=== PATIENT | female | born 1945 | race American Indian/Alaskan Native ===

== ENCOUNTER 2017-11-27 15:19 | Emergency (ER) | payer MEDICARE ==
[2017-11-27 15:19] VITALS: BMI 25.5
[2017-11-27 15:44] VITALS: RESP 18; TEMP 97.9; O2SAT 100
[2017-11-27] MEDS ORDERED: Sodium Chloride 0.9% 1,000 ML IV ONE (16:01)
--- NOTE | 2017-11-27 16:05 | ED PDOC ---
Arrival/HPI - General Chief Complaint: Dizziness/Lightheaded Time Seen by Provider: 11/27/17 15:59 Historian: Patient - History of Present Illness Narrative History of Present Illness (Text): 11/27/17 16:02 72yo female with PMhx of hypertension and Diabetes bib the BLS for syncopal episode. The daughter by the bedside states patient had a brief syncopal episode that lasted for seconds while in a store this afternoon. Patient states she started having generalized bodyache, global weakness, and one episode of diarrhea this afternoon. The daughter states she herself had similar symptoms and was diagnosed with Flu here two days ago. She thinks patient might also have Flu. She denies chest pain, abdominal pain, nausea, vomiting, headache, fever, chills, urinary symptoms, any other complaint. Past Medical History - Provider Review Nursing Documentation Reviewed: Yes - Infectious Disease Hx of Infectious Diseases: None - Tetanus Immunization Tetanus Immunization: Unknown - Reproductive Menopause: Yes - Cardiac Hx Hypertension: Yes - HEENT Hx HEENT Disorder: No - Endocrine/Metabolic Hx Diabetes Mellitus Type 2: Yes - Musculoskeletal/Rheumatological Hx Falls: No - Gastrointestinal Hx Gastrointestinal Disorders: (Hiatal Hernia) Hx Diverticulitis: Yes - Psychiatric Hx Substance Use: No - Surgical History Hx Hysterectomy: Yes Hx Joint Replacement: Yes (right knee) Hx Orthopedic Surgery: Yes (left shoulder,) - Anesthesia Hx Anesthesia: No Hx Anesthesia Reactions: No Hx Malignant Hyperthermia: No - Suicidal Assessment Feels Threatened In Home Enviroment: No Family/Social History - Physician Review Nursing Documentation Reviewed: Yes Family/Social History: Unknown Family HX Smoking Status: Never Smoked Hx Alcohol Use: No Hx Substance Use: No Hx Substance Use Treatment: No Allergies/Home Meds Allergies/Adverse Reactions: Allergies codeine Allergy (Severe, Verified 09/20/16 00:42) ANAPHYLAXIS indomethacin Allergy (Verified 09/20/16 00:43) HEADACHE scopolamine Adverse Reaction (Verified 09/20/16 00:43) DIZZINESS contact cold ca Allergy (Uncoded 09/20/16 00:43) HEADACHE Home Medications: Home Meds Medication Instructions Recorded Confirmed Aspirin [Aspir 81] 81 mg PO DAILY 06/04/12 08/20/17 Celecoxib [Celebrex] 100 mg PO DAILY 06/04/12 08/20/17 Omeprazole [Prilosec] 20 mg PO DAILY 06/04/12 08/20/17 Olmesartan Medoxomil [Benicar] 5 mg PO DAILY 05/02/15 08/20/17 Exenatide Microspheres [Bydureon 2 mg SC DAILY 09/20/16 08/20/17 Pen] Review of Systems - Physician Review All systems were reviewed & negative as marked: Yes - Review of Systems Constitutional: Fatigue Eyes: Normal ENT: Normal Respiratory: Normal Cardiovascular: Normal Gastrointestinal: Normal Genitourinary Female: Normal Musculoskeletal: Normal Skin: Normal Neurological: Dizziness (Syncope). absent: Headache, Focal Weakness Endocrine: Normal Hemo/Lymphatic: Normal Psychiatric: Normal Physical Exam Vital Signs Reviewed: Yes Vital Signs Temp Pulse Resp BP Pulse Ox 11/27/17 19:20 84 18 126/74 100 11/27/17 15:19 97.9 F 81 18 118/71 100 Temperature: Afebrile Blood Pressure: Normal Pulse: Regular Respiratory Rate: Normal Appearance: Positive for: Well-Appearing, Non-Toxic, Comfortable Pain Distress: None Mental Status: Positive for: Alert and Oriented X 3 Finger Stick Blood Glucose: 161 - Systems Exam Head: Present: Atraumatic, Normocephalic Pupils: Present: PERRL Extroacular Muscles: Present: EOMI Conjunctiva: Present: Normal Mouth: Present: Moist Mucous Membranes Neck: Present: Normal Range of Motion Respiratory/Chest: Present: Clear to Auscultation, Good Air Exchange. No: Respiratory Distress, Accessory Muscle Use Cardiovascular: Present: Regular Rate and Rhythm, Normal S1, S2. No: Murmurs Abdomen: Present: Normal Bowel Sounds. No: Tenderness, Distention, Peritoneal Signs Back: Present: Normal Inspection Upper Extremity: Present: Normal Inspection. No: Cyanosis, Edema Lower Extremity: Present: Normal Inspection. No: Edema Neurological: Present: GCS=15, CN II-XII Intact, Speech Normal, Motor Func Grossly Intact, Normal Sensory Function, Normal Cerebellar Funct, Norm Deep Tendon Reflexes, Memory Normal, Other (No focal neurological deficit) Skin: Present: Warm, Dry, Normal Color. No: Rashes Psychiatric: Present: Alert, Oriented x 3, Normal Insight, Normal Concentration Medical Decision Making ED Course and Treatment: 11/27/17 19:34 PT in ED for stated history. She was neurologically stable in ED. BUN was elevated likely secondary to dehydration, pt was hydrated. H/H of 9.5 was noted and on further questioning, pt states she sees a Senior Programmer for Anemia and on iron currently. she denies Melena. Head Ct was negative for acute derangement. EKG NSR @ 77bpm she was offered admission for further evaluation to r/o neurogenic/cardiogenic causes states she already saw a Ship Worker and will f/u with the field operations supervisor. the risk of another syncopal episode, head injury and even was DW the patient with the daughter by the bedside. She expressed understanding of these risks and still insist on signing out AMA. she was advised to return to ED if she changes her mind at anytime. Advised to f /u with her PMD and specialist. - Lab Interpretations Lab Results: 11/27/17 16:40 11/27/17 16:40 Lab Results 11/27/17 19:00: Urine Color Yellow, Urine Appearance Clear, Urine pH 6.5, Ur Specific [place] 1.010, Urine Protein Negative, Urine Glucose (UA) Negative, Urine Ketones Negative, Urine Blood Trace-intact H, Urine Nitrate Negative, Urine Bilirubin Negative, Urine Urobilinogen 0.2, Ur Leukocyte Esterase Negative , Urine RBC 0 - 2, Urine WBC 0 - 2, Ur Epithelial Cells 0 - 2, Urine Bacteria Few 11/27/17 16:40: PT 11.6, INR 1.02, APTT 23.9 L 11/27/17 16:40: Influenza Typ A,B (EIA) Negative for flu a/b 11/27/17 16:40: Sodium 140, Potassium 4.8, Chloride 105, Carbon Dioxide 24, Anion Gap 15, BUN 29 H, Creatinine 1.0, Est GFR ( Amer) > 60, Est GFR ( Non-Af Amer) 55, Random Glucose 160 H, Calcium 10.3, Magnesium 1.7, Total Bilirubin 0.4, AST 32, ALT 31, Alkaline Phosphatase 28 L, Lactate Dehydrogenase 534, Total Creatine Kinase 55, Troponin I < 0.01, Total Protein 6.7, Albumin 3.8 , Globulin 2.9, Albumin/Globulin Ratio 1.3 11/27/17 16:40: WBC 5.9, RBC 4.07, Hgb 9.5 L, Hct 30.2 L, MCV 74.2 L, MCH 23.3 L , MCHC 31.5, RDW 17.4 H, Plt Count 376, MPV 9.6, Gran % 71.5 H, Lymph % (Auto) 23.6, [place] % (Auto) 4.1, Eos % (Auto) 0.5 L, Baso % (Auto) 0.3, Gran # 4.21, Lymph # (Auto) 1.4, [place] # (Auto) 0.2, Eos # (Auto) 0.0, Baso # (Auto) 0.02 - RAD Interpretation Radiology Orders: 11/27/17 16:00 HEAD W/O CONTRAST [CT] Stat CHEST PORTABLE [RAD] Stat - Medication Orders Current Medication Orders: Sodium Chloride (Sodium Chloride 0.9%) 1,000 mls @ 250 mls/hr IV .Q4H ONE Stop: 11/27/17 20:00 Last Admin: 11/27/17 17:03 Dose: 250 mls/hr eMAR Start Stop Document 11/27/17 17:03 EQ (Rec: 11/27/17 17:03 EQ [id number]) Intravenous Solution Start Date 11/27/17 Start Time 17:03 Disposition/Present on Arrival - Present on Arrival Any Indicators Present on Arrival: No History of DVT/PE: No History of Uncontrolled Diabetes: No Urinary Catheter: No History of Decub. Ulcer: No History Surgical Site Infection Following: None - Disposition Have Diagnosis and Disposition been Completed?: Yes Diagnosis: Syncope Disposition: AGAINST MEDICAL ADVICE Disposition Time: 19:30 Patient Problems: Current Active Problems Problem Status Onset Syncope Acute Condition: FAIR Discharge Instructions (ExitCare): Syncope (ED) Referrals: Zoran Christine, [Primary Care Provider] - Follow up with primary Forms: Piehole (N[place]ien)
[2017-11-27 16:56] LABS: BASO # 0.02 K/mm3 (0.0-2.0); BASO % 0.3 % (0.0-3.0); EOS % 0.5 % (1.5-5.0); GRAN # 4.21 (1.4-6.5); GRAN % 71.5 % (50.0-68.0); HEMOGLOBIN 9.5 g/dL (12.0-16.0); LYMPH # 1.4 (1.2-3.4); LYMPH % 23.6 % (22.0-35.0); MEAN CELL VOLUME 74.2 fl (80.0-105.0); MEAN CORPUSCULAR HEMOGLOBIN 23.3 pg (25.0-35.0); MEAN CORPUSCULAR HGB CONC 31.5 g/dl (31.0-37.0); MEAN PLATELET VOLUME 9.6 fl (7.0-11.0); MONO # 0.2 (0.1-0.6); MONO % 4.1 % (1.0-6.0); RBC 4.07 10^6/uL (3.5-6.1); RED CELL DISTRIBUTION WIDTH 17.4 % (11.5-14.5); WHITE BLOOD COUNT 5.9 10^3/ul (4.5-11.0)
[2017-11-27 17:09] LABS: INR 1.02 (0.93-1.08); PROTHROMBIN TIME 11.6 SECONDS (9.4-12.5)
[2017-11-27 17:10] LABS: PARTIAL THROMBOPLASTIN TIME 23.9 Seconds (25.1-36.5)
[2017-11-27 17:18] LABS: TROPONIN I < 0.01 ng/mL
[2017-11-27 17:19] LABS: ALB/GLOB RATIO 1.3 (1.1-1.8); ALBUMIN 3.8 g/dL (3.0-4.8); ALT/SGPT 31 U/L (7-56); AST/SGOT 32 U/L (14-36); BLOOD UREA NITROGEN 29 mg/dL (7-21); CALCIUM 10.3 mg/dL (8.4-10.5); GFR AFRICAN-AMERICAN > 60; GFR NON-AFRICAN AMERICAN 55; MAGNESIUM 1.7 mg/dL (1.7-2.2)
--- NOTE | 2017-11-27 18:58 | CT ---
PROCEDURE: CT HEAD WITHOUT CONTRAST. HISTORY: Syncope COMPARISON: None available. TECHNIQUE: Axial computed tomography images were obtained through the head/brain without intravenous contrast. Coronal and sagittal reconstructed images. Radiation dose: Total exam DLP = mGy-cm. This CT exam was performed using one or more of the following dose reduction techniques: Automated exposure control, adjustment of the mA and/or kV according to patient size, and/or use of iterative reconstruction technique. FINDINGS: HEMORRHAGE: 751.67 BRAIN: No mass effect or edema. No atrophy or chronic microvascular ischemic changes. VENTRICLES: Unremarkable. No hydrocephalus. CALVARIUM: Unremarkable. PARANASAL SINUSES: Unremarkable as visualized. No significant inflammatory changes. MASTOID AIR CELLS: Unremarkable as visualized. No inflammatory changes. OTHER FINDINGS: None. IMPRESSION: No acute intracranial abnormalities. No significant findings to account for the clinical presentation. No significant interval change compared to the prior examination(s).
[2017-11-27 19:14] LABS: PH,URINE 6.5 (4.7-8.0); URINE BILIRUBIN NEGATIVE (NEGATIVE); URINE BLOOD TRACE-INTACT (NEGATIVE); URINE GLUCOSE (UA) NEGATIVE (NEGATIVE); URINE LEUKOCYTE ESTERASE NEGATIVE Leu/uL (NEGATIVE); URINE NITRATE NEGATIVE (NEGATIVE); URINE PROTEIN NEGATIVE mg/dL (<30 mg/dL); URINE UROBILINOGEN 0.2 E.U./dL (<1 E.U./dL)
[2017-11-27 19:20] LABS: URINE APPEARANCE CLEAR (CLEAR); URINE COLOR YELLOW (YELLOW)
[2017-11-27 19:21] VITALS: BP 126/74; PULSE 84
[2017-11-27 19:25] LABS: URINE BACTERIA FEW (NEG); URINE EPITHELIAL CELLS 0 - 2 /hpf (0-5); URINE RBC 0 - 2 /hpf (0-2); URINE WBC 0 - 2 /hpf (0-6)
--- NOTE | 2017-11-27 23:47 | CARD ---
APPROVED REPORT EKG Measurement Heart [id number] <Conclusion> Normal sinus rhythm Normal ECG
--- NOTE | 2017-11-28 09:03 | RAD ---
HISTORY: admission COMPARISON: Comparison is made with 08/20/2017 FINDINGS: LUNGS: No active pulmonary disease. PLEURA: No significant pleural effusion identified, no pneumothorax apparent. CARDIOVASCULAR: Normal. OSSEOUS STRUCTURES: No significant abnormalities. VISUALIZED UPPER ABDOMEN: Normal. OTHER FINDINGS: None. IMPRESSION: No active disease.
== END 2017-11-27 20:12 | disposition left against medical advice (07) ==
LOC: ED 15:19
DX: R55 Syncope and collapse (principal); I10 Essential (primary) hypertension; E11.9 Type 2 diabetes mellitus without complications
CPT/HCPCS: 70450; 71045; 80053; 81001; 82550; 83615; 83735; 84484; 85025; 85610; 85730; 87804; 93005; 99285; J7040

== ENCOUNTER 2018-08-11 08:50 | Inpatient (IN) | payer MEDICARE ==
[2018-08-11 09:06] VITALS: BMI 23.0
--- NOTE | 2018-08-11 09:21 | ED PDOC ---
Arrival/HPI - General Historian: Patient - History of Present Illness Narrative History of Present Illness (Text): 08/11/18 09:21 73 y/o female, pmh including htn/dm/hernia/gerd/rt. knee surgery/colon resection history about 15 years ago/abdominal hernia surgery about 1 year ago, allergic to nsaid/codein/scopolamine, c/o upper and left sided abdominal pain x 2 weeks. Pt. stated that she has upper and lt. sided abdominal pain on and off x 2 weeks, associated with nausea but no vomiting, no chest pain or shortness of breath, no night sweat, no dizziness, no change in vision, saw her pmd Dr. Dominguez and send for ct abdomen and pelvis which was never completed so she is here at the ER for evaluation. Pt. has no fever or chills. <Bebo Murphy - Last Filed: 08/11/18 16:05> <Janine Rob - Last Filed: 08/16/18 12:23> - General Chief Complaint: Abdominal Pain Time Seen by Provider: 08/11/18 09:17 Past Medical History - Provider Review Nursing Documentation Reviewed: Yes - Infectious Disease Hx of Infectious Diseases: None - Tetanus Immunization Tetanus Immunization: Unknown - Cardiac Hx Hypertension: Yes - HEENT Hx HEENT Disorder: No - Endocrine/Metabolic Hx Diabetes Mellitus Type 2: Yes - Musculoskeletal/Rheumatological Hx Falls: No - Gastrointestinal Hx Gastrointestinal Disorders: (Hiatal Hernia) Hx Diverticulitis: Yes - Psychiatric Hx Depression: No Hx Emotional Abuse: No Hx Physical Abuse: No Hx Substance Use: No - Surgical History Hx Hysterectomy: Yes Hx Joint Replacement: Yes (right knee) Hx Orthopedic Surgery: Yes (left shoulder,) - Anesthesia Hx Anesthesia: Yes Hx Anesthesia Reactions: No Hx Malignant Hyperthermia: No - Suicidal Assessment Feels Threatened In Home Enviroment: No <Bebo Murphy - Last Filed: 08/11/18 16:05> Family/Social History - Physician Review Nursing Documentation Reviewed: Yes Family/Social History: Unknown Family HX Smoking Status: Never Smoked Hx Alcohol Use: No Hx Substance Use: No Hx Substance Use Treatment: No <Bebo Murphy - Last Filed: 08/11/18 16:05> Allergies/Home Meds <Bebo Murphy - Last Filed: 08/11/18 16:05> <Janine Rob - Last Filed: 08/16/18 12:23> Allergies/Adverse Reactions: Allergies codeine Allergy (Severe, Verified 08/11/18 16:38) ANAPHYLAXIS indomethacin Allergy (Verified 08/11/18 16:38) HEADACHE scopolamine Adverse Reaction (Verified 08/11/18 16:38) DIZZINESS contact cold ca Allergy (Uncoded 08/11/18 16:38) HEADACHE Home Medications: Home Meds Medication Instructions Recorded Confirmed Aspirin [Adult Low Dose Aspirin EC] 1 tab PO DAILY 08/11/18 08/11/18 Cholecalciferol (Vitamin D3) 1 cap PO DAILY 08/11/18 08/11/18 [Vitamin D3] DULoxetine [Cymbalta] 1 cap PO DAILY 08/11/18 08/11/18 Famotidine [Pepcid AC] 1 tab PO DAILY 08/11/18 08/11/18 Fenofibric Acid (Choline) 1 tab PO DAILY 08/11/18 08/11/18 [Trilipix] Glipizide/Metformin HCl 2 tab PO BID 08/11/18 08/11/18 [Glipizide-Metformin 5-500 mg] Iron Carb,Gl/FA/B12/C/Docusate 1 tab PO DAILY 08/11/18 08/11/18 [Ferralet 90 Tablet] Metoprolol Succinate XL [Toprol XL] 1 tab PO DAILY 08/11/18 08/11/18 Montelukast [Singulair] 1 tab PO DAILY 08/11/18 08/11/18 Olmesartan Medoxomil [Benicar] 1 tab PO DAILY 08/11/18 08/11/18 RX: Celecoxib [celeBREX] 1 cap PO BID 08/11/18 08/11/18 RX: Levocetirizine Dihydrochloride 1 tab PO DAILY 08/11/18 08/11/18 [Xyzal] RX: Raloxifene [Evista] 1 tab PO DAILY 08/11/18 08/11/18 RX: amLODIPine [Norvasc] 1 tab PO DAILY 08/11/18 08/11/18 hydroCHLOROthiazide [Hydrodiuril] 1 tab PO DAILY 08/11/18 08/11/18 Review of Systems - Review of Systems Constitutional: absent: Fatigue, Fevers Eyes: absent: Vision Changes ENT: absent: Hearing Changes Respiratory: absent: SOB, Cough Cardiovascular: absent: Chest Pain Gastrointestinal: Abdominal Pain, Nausea. absent: Diarrhea, Vomiting Musculoskeletal: absent: Arthralgias, Back Pain Skin: absent: Rash, Pruritis Neurological: absent: Headache, Dizziness Psychiatric: absent: Anxiety, Depression <Bebo Murphy Q - Last Filed: 08/11/18 16:05> Physical Exam Vital Signs Reviewed: Yes Vital Signs Temp Pulse Resp BP Pulse Ox 08/11/18 09:08 98.0 F 87 18 154/72 H 100 Temperature: Afebrile Blood Pressure: Hypertensive Pulse: Regular Respiratory Rate: Normal Appearance: Positive for: Well-Appearing, Non-Toxic, Comfortable Pain Distress: Moderate Mental Status: Positive for: Alert and Oriented X 3 - Systems Exam Head: Present: Atraumatic, Normocephalic Pupils: Present: PERRL Extroacular Muscles: Present: EOMI Conjunctiva: Present: Normal Mouth: Present: Moist Mucous Membranes Neck: Present: Normal Range of Motion Respiratory/Chest: Present: Clear to Auscultation, Good Air Exchange. No: Respiratory Distress, Accessory Muscle Use Cardiovascular: Present: Regular Rate and Rhythm, Normal S1, S2. No: Murmurs Abdomen: Present: Tenderness (upper and left sided abdomen), Normal Bowel So unds. No: Distention, Peritoneal Signs, Rebound, Guarding Back: Present: Normal Inspection Upper Extremity: Present: Normal Inspection. No: Cyanosis, Edema Lower Extremity: Present: Normal Inspection. No: Edema Neurological: Present: GCS=15, CN II-XII Intact, Speech Normal Skin: Present: Warm, Dry, Normal Color. No: Rashes Psychiatric: Present: Alert, Oriented x 3, Normal Insight, Normal Concentration <Bebo Murphy Q - Last Filed: 08/11/18 16:05> Vital Signs Temp Pulse Resp BP Pulse Ox 08/11/18 14:22 98 F 89 19 139/70 100 08/11/18 13:35 98.1 F 87 17 125/70 96 08/11/18 11:53 98.2 F 94 H 18 127/77 100 08/11/18 09:08 98.0 F 87 18 154/72 H 100 <Janine Rob - Last Filed: 08/16/18 12:23> Medical Decision Making ED Course and Treatment: 08/11/18 09:35 -Labs/lipase/trop/ua -ekg -cxr -CT abdomen and pelvis -IVF/pepcid/zofran -observe and reassess 08/11/18 13:35 -EKG: NSR @ 83 BPM, no ST elevation or depression, no T wave inversion, compared with previous ekgs. -CXR ER wet read: no active disease -CT abdomen and pelvis show Unremarkable pre and post contrast enhanced CT of the abdomen and pelvis. -Labs show no acute findings -Lipase is normal -Trop is negative -Magnesium 1.5 (mgsu 1gm ordered) -UA show no UTI -Pt. still having abdominal pain, morphine 4mg IV ordered as she still having pain which she said she had morphine before with no adverse reaction/side effect. -Pt. still has pain, all labs/radiology results discussed with the patient, recommend admission for analgesic control and GI consult as needed. -Paged out to DR. Dominguez for admission. 08/11/18 13:47 -I spoke to Dr. Dominguez about this case/labs/radiology results, agreed to admit under her service and routine consult order for Dr. Carey to evaluate the patient. - RAD Interpretation Radiology Orders: CXR: Date of service: 08/11/2018 HISTORY: Medical clearance COMPARISON: 11/27/2017 FINDINGS: LUNGS: No active pulmonary disease. PLEURA: No significant pleural effusion identified, no pneumothorax apparent. CARDIOVASCULAR: No atherosclerotic calcification present No radiographic findings to suggest acute or significant cardiovascular disease. OSSEOUS STRUCTURES: No significant abnormalities. VISUALIZED UPPER ABDOMEN: Normal. OTHER FINDINGS: None. IMPRESSION: No active disease. No significant interval change compared to the prior examin ation(s). Concordant results with the preliminary interpretation rendered by the emergency department physician\HELADIO at the conclusion of the procedure. CT abdomen and pelvis: PROCEDURE: CT Abdomen and Pelvis with and without intravenous contrast HISTORY: upper and lt. sided abdominal pain x 2 weeks COMPARISON: 03/20/2015 TECHNIQUE: Axial images of the abdomen were obtained in the pre contrast, portal venous and delayed phases of enhancement. Coronal and sagittal reformats were generated. Contrast dose: Radiation dose: Total exam DLP = 248.95 mGy-cm. This CT exam was performed using one or more of the following dose reduction techniques: Automated exposure control, adjustment of the mA and/or kV according to patient size, and/or use of iterative reconstruction technique. FINDINGS: LOWER THORAX: Unremarkable. LIVER: Unremarkable. No gross lesion or ductal dilatation. GALLBLADDER AND BILE DUCTS: Unremarkable. PANCREAS: Unremarkable. No gross lesion or ductal dilatation. SPLEEN: Unremarkable. ADRENALS: Unremarkable. No mass. KIDNEYS AND URETERS: Unremarkable. No hydronephrosis. No solid mass. VASCULATURE: Unremarkable. No aortic aneurysm. No aortic atherosclerotic calcification or mural plaque present. BOWEL: Unremarkable. No obstruction. No gross mural thickening. APPENDIX: Normal appendix. PERITONEUM: Unremarkable. No free fluid. No free air. LYMPH NODES: Unremarkable. No enlarged lymph nodes. BLADDER: Unremarkable. REPRODUCTIVE: Unremarkable. BONES: No acute fracture. OTHER FINDINGS: None. IMPRESSION: Unremarkable pre and post contrast enhanced CT of the abdomen and pelvis. Plant Maintenance Worker: Radiologist - EKG Interpretation EKG Interpretation (Text): 08/11/18 10:05 -NSR @ 83 BPM, no ST elevation or depression, no T wave inversion, compared with previous ekgs. Interpreted by ED Physician: Yes Type: 12 lead EKG Comparison: Com.w/previous EKG <Bebo Murphy - Last Filed: 08/11/18 16:05> - Lab Interpretations Microbiology Results: Microbiology Results 08/12/18 22:24 Stool Stool Culture - Final NO SALMONELLA, SHIGELLA OR CAMPYLOBACTER ISOLATED. 08/12/18 22:24 Stool C. difficile Antigen & Toxins A,B - Final Lab Results: 08/11/18 09:45 08/11/18 09:45 Lab Results 08/12/18 21:00: POC Glucose (mg/dL) 281 H 08/12/18 16:18: POC Glucose (mg/dL) 210 H 08/12/18 13:20: Magnesium 1.9 08/12/18 11:31: POC Glucose (mg/dL) 263 H 08/12/18 07:14: POC Glucose (mg/dL) 136 H 08/11/18 23:17: POC Glucose (mg/dL) 162 H 08/11/18 13:00: Urine Color Light yellow, Urine Appearance Clear, Urine pH 7.0, Ur Specific [place] <= 1.005, Urine Protein Negative, Urine Glucose (UA) Negative, Urine Ketones Negative, Urine Blood Negative, Urine Nitrate Negative, Urine Bilirubin Negative, Urine Urobilinogen 0.2, Ur Leukocyte Esterase Negative 08/11/18 09:45: Sodium 138, Potassium 4.4, Chloride 105, Carbon Dioxide 25, Anion Gap 11, BUN 19, Creatinine 0.9, Est GFR ( Amer) > 60, Est GFR (Non- Af Amer) > 60, Random Glucose 166 H, Calcium 9.2, Magnesium 1.5 L, Total Biliru bin 0.5, AST 25, ALT 22, Alkaline Phosphatase 28 L, Lactate Dehydrogenase 487, Total Creatine Kinase 47, Troponin I < 0.01, Total Protein 6.5, Albumin 3.6, Globulin 2.9, Albumin/Globulin Ratio 1.2, Lipase 91 08/11/18 09:45: WBC 10.3 D, RBC 3.98, Hgb 9.3 L, Hct 29.3 L, MCV 73.6 L, MCH 23.4 L, MCHC 31.7, RDW 16.9 H, Plt Count 363, MPV 9.7, Gran % 85.5 H, Lymph % (Auto) 7.8 L, [place] % (Auto) 6.3 H, Eos % (Auto) 0.2 L, Baso % (Auto) 0.2, Gran # 8.77 H, Lymph # (Auto) 0.8 L, [place] # (Auto) 0.7 H, Eos # (Auto) 0.0, Baso # (Auto) 0.02 - RAD Interpretation Radiology Orders: 08/11/18 09:29 ABD & PELVIS IV CONTRAST ONLY [CT] Stat 08/11/18 09:36 CHEST PORTABLE [RAD] Stat - Medication Orders Current Medication Orders: Discontinued Medications Acetaminophen (Tylenol 325mg Tab) 650 mg PO Q6H PRN PRN Reason: Headache Last Admin: 08/13/18 16:32 Dose: 650 mg [facility] Pain/Vitals Document 08/13/18 16:32 AG (Rec: 08/13/18 16:[address] [id number] Pain Reassessment Is This A Pain ReAssessment? Yes Sleep Is patient sleeping during reassessment? No Presence of Pain Presence of Pain Yes Pain Scale Used Protocol: [facility] Pain Scale Used 8 Location Pain Location Body Solar Installer Pv Description Pressure Scale Used Numeric Pain Behavior Irritability Aggravating Factors None Alleviating Factors Medication Re-Assess: [facility] Pain/Vitals Document 08/13/18 17:32 AG (Rec: 08/13/18 18:28 AG [id number]) Pain Reassessment Is This A Pain ReAssessment? Yes Sleep Is patient sleeping during reassessment? No Presence of Pain Presence of Pain Yes Pain Scale Used Protocol: PSCALES Pain Scale Used Numeric Location Pain Location Body Solar Installer Pv Description Dull Scale Used Numeric Pain Behavior Irritability Aggravating Factors None Alleviating Factors Medication Amlodipine Besylate (Norvasc) 10 mg PO DAILY [facility] Last Admin: 08/15/18 09:42 Dose: 10 mg [facility] Blood Pressure Document 08/15/18 09:42 AG (Rec: 08/15/18 09:[address] [id number] Blood Pressure Blood Pressure (100/60-150/90) 146/82 Aspirin (Ecotrin) 81 mg PO DAILY [facility] Aspirin (Ecotrin) 81 mg PO [facility] Last Admin: 08/14/18 21:41 Dose: 81 mg Cholecalciferol (Vitamin D) 2,000 intlu PO DAILY [facility] Last Admin: 08/15/18 10:11 Dose: 2,000 intlu Duloxetine HCl (Cymbalta) 30 mg PO DAILY [facility] Duloxetine HCl (Cymbalta) 30 mg PO HS [facility] Last Admin: 08/14/18 21:41 Dose: 30 mg Enoxaparin Sodium (Lovenox) 40 mg SC DAILY [facility]; Protocol Last Admin: 08/15/18 09:43 Dose: Not Given Non-Admin Reason: Patient Refused Famotidine (Pepcid) 20 mg IVP STAT STA Stop: 08/11/18 09:30 Last Admin: 08/11/18 09:42 Dose: 20 mg IVP Administration Document 08/11/18 09:42 SF (Rec: 08/11/18 09:42 SF [id number]) Charges for Administration # of IVP Administrations 1 Home Med (Home Med) 1 unit PO DAILY DOUG Last Admin: 08/15/18 09:42 Dose: 1 unit Home Med (Home Med) 1 unit PO DAILY [facility] Last Admin: 08/15/18 11:59 Dose: 1 unit Home Med (Home Med) 2 unit PO BIDWM DOUG Last Admin: 08/15/18 10:10 Dose: 1 unit Home Med (Home Med) 1 unit PO DAILY DOU[facility] Home Med (Home Med) 1 unit PO DAILY DOUG Home Med (Home Med) 1 unit PO HS DOUG Last Admin: 08/14/18 21:43 Dose: 1 unit Home Med (Home Med) 1 unit PO HS DOUG Last Admin: 08/14/18 21:43 Dose: 1 unit Hydrochlorothiazide (Hydrodiuril) 25 mg PO DAILY [facility] Last Admin: 08/15/18 09:43 Dose: 25 mg Sodium Chloride (Sodium Chloride 0.9%) 1,000 mls @ 100 mls/hr IV .Q10H DOUG Last Admin: 08/13/18 21:58 Dose: 100 mls/hr eMAR Start Stop Document 08/13/18 21:58 SG (Rec: 08/13/18 21:59 SG [id number]) Intravenous Solution Start Date 08/13/18 Start Time 21:58 End Date 08/13/18 End time 22:58 Total Infusion Time 60 Magnesium Sulfate/Dextrose (Magnesium Sulfate 1 Gm/100 Ml D5w) 1 gm in 100 mls @ 100 mls/hr IVPB ONCE ONE Stop: 08/11/18 11:31 Last Admin: 08/11/18 11:46 Dose: 100 mls/hr eMAR Start Stop Document 08/11/18 11:46 LA (Rec: 08/11/18 11:46 LA [id number]) Intravenous Solution Start Date 08/11/18 Start Time 11:46 End Date 08/11/18 End time 12:46 Total Infusion Time 60 Metronidazole (Flagyl) 500 mg in 100 mls @ 100 mls/hr IVPB Q8 DOUG; Protocol Last Admin: 08/15/18 05:27 Dose: 100 mls/hr eMAR Start Stop Document 08/15/18 05:27 RS (Rec: 08/15/18 05:[address] [id number] Intravenous Solution Start Date 08/15/18 Start Time 05:27 End Date 08/15/18 End time 06:27 Total Infusion Time 60 Ceftriaxone Sodium (Rocephin 1 Gram Ivpb) 1 gm in 100 mls @ 100 mls/hr IVPB DAILY [facility]; Protocol Last Admin: 08/15/18 09:40 Dose: 100 mls/hr eMAR Start Stop Document 08/15/18 09:40 AG (Rec: 08/15/18 09:40 AG [id number]) Intravenous Solution Start Date 08/15/18 Start Time 09:40 Influenza Virus Vaccine (Flucelvax Quad 8009-0419 Syr) 60 mcg IM .ONCE ONE Stop: 08/11/18 18:41 Losartan Potassium (Cozaar) 100 mg PO DAILY [facility] Last Admin: 08/15/18 11:59 Dose: Not Given Non-Admin Reason: BP Parameters Not Met Metoprolol Succinate (Toprol Xl) 50 mg PO DAILY [facility] Last Admin: 08/15/18 09:44 Dose: 50 mg MAR Pulse and Blood Pressure Document 08/15/18 09:44 AG (Rec: 08/15/18 09:[address] [id number]) Pulse Pulse Rate (60-90) 82 Blood Pressure Blood Pressure (100/60-150/90) 146/82 Montelukast Sodium (Singulair) 10 mg PO DAILY [facility] Montelukast Sodium (Singulair) 10 mg PO HS [facility] Last Admin: 08/14/18 21:41 Dose: 10 mg Morphine Sulfate (Morphine) 4 mg IVP STAT STA Stop: 08/11/18 11:38 Last Admin: 08/11/18 11:46 Dose: 4 mg MAR Pain Assessment Document 08/11/18 11:46 LA (Rec: 08/11/18 11:[address] [id number] Pain Reassessment Is this a pain reassessment? No Sleep Is patient sleeping during reassessment? No Presence of Pain Presence of Pain Yes Pain Scale Used Protocol: PSCALES Pain Scale Used Numeric Location Pain Location Body Site Abdomen Description Description Intermittent Intensity of Pain at present 7 Pain Behavior Moaning Guarding IVP Administration Document 08/11/18 11:46 LA (Rec: 08/11/18 11:[address] [id number]) Charges for Administration # of IVP Administrations 1 Re-Assess: MAR Pain Assessment Document 08/11/18 12:46 LA (Rec: 08/11/18 13:[address] [id number]) Pain Reassessment Is this a pain reassessment? Yes Sleep Is patient sleeping during reassessment? No Presence of Pain Presence of Pain Yes Pain Scale Used Protocol: [facility] Pain Scale Used Numeric Location Pain Location Body Site Abdomen Description Description Intermittent Intensity of Pain at present 3 Morphine Sulfate (Morphine) 1 mg IVP Q6 PRN PRN Reason: Pain, severe (8-10) Last Admin: 08/15/18 00:19 Dose: 1 mg MAR Pain Assessment Document 08/15/18 00:19 RS (Rec: 08/15/18 00:[address] [id number] Pain Reassessment Is this a pain reassessment? No Sleep Is patient sleeping during reassessment? No Presence of Pain Presence of Pain Yes Pain Scale Used Protocol: [facility] Pain Scale Used Numeric Location Left, Right or Bilateral Left Pain Location Body Site Abdomen Description Intensity of Pain at present 7 IVP Administration Document 08/15/18 00:19 RS (Rec: 08/15/18 00:[address] [id number] Charges for Administration # of IVP Administrations 1 Iron Carb,Gl/Fa/B12/C/Docusate [Ferralet 90 Tablet] 1 tab PO DAILY [facility] Last Admin: 08/15/18 09:30 Dose: Not Given Non-Admin Reason: med not avail Ondansetron HCl (Zofran Inj) 4 mg IVP STAT STA Stop: 08/11/18 09:30 Last Admin: 08/11/18 09:42 Dose: 4 mg IVP Administration Document 08/11/18 09:42 SF (Rec: 08/11/18 09:42 [id number]) Charges for Administration # of IVP Administrations 1 Pneumococcal Polyvalent Vaccine (Pneumovax 23 Vaccine) 0.5 ml IM .ONCE ONE Stop: 08/11/18 18:41 Potassium Chloride (K-Dur 20 Meq Er Tab) 40 meq PO Q4H DOUG Stop: 08/14/18 14:46 Last Admin: 08/14/18 15:11 Dose: 40 meq <Janine Rob - Last Filed: 08/16/18 12:23> - PA / DICTAPHONE TRANSCRIBER / Resident Statement ANNA has reviewed & agrees with the documentation as recorded. <Bebo Murphy - Last Filed: 08/11/18 16:05> - PA / DICTAPHONE TRANSCRIBER / Resident Statement ANNA has reviewed & agrees with the documentation as recorded. <Janine Rob - Last Filed: 08/16/18 12:23> Disposition/Present on Arrival - Present on Arrival Any Indicators Present on Arrival: No History of DVT/PE: No History of Uncontrolled Diabetes: No Urinary Catheter: No History of Decub. Ulcer: No History Surgical Site Infection Following: None - Disposition Have Diagnosis and Disposition been Completed?: Yes Disposition Time: 13:37 Patient Plan: Admission, Observation <Bebo Murphy - Last Filed: 08/11/18 16:05> <Janine Rob - Last Filed: 08/16/18 12:23> - Disposition Diagnosis: Intractable abdominal pain, Chronic anemia, Hypomagnesemia Disposition: HOSPITALIZED Condition: STABLE
[2018-08-11] MEDS: Sodium Chloride 0.9% 1,000 ML IV SCH ×2 (09:39→20:07)
[2018-08-11 10:22] LABS: BASO # 0.02 K/mm3 (0.0-2.0); BASO % 0.2 % (0.0-3.0); EOS % 0.2 % (1.5-5.0); GRAN # 8.77 (1.4-6.5); GRAN % 85.5 % (50.0-68.0); HEMOGLOBIN 9.3 g/dL (12.0-16.0); LYMPH # 0.8 (1.2-3.4); LYMPH % 7.8 % (22.0-35.0); MEAN CELL VOLUME 73.6 fl (80.0-105.0); MEAN CORPUSCULAR HEMOGLOBIN 23.4 pg (25.0-35.0); MEAN CORPUSCULAR HGB CONC 31.7 g/dl (31.0-37.0); MEAN PLATELET VOLUME 9.7 fl (7.0-11.0); MONO # 0.7 (0.1-0.6); MONO % 6.3 % (1.0-6.0); RBC 3.98 10^6/uL (3.5-6.1); RED CELL DISTRIBUTION WIDTH 16.9 % (11.5-14.5); WHITE BLOOD COUNT 10.3 10^3/ul (4.5-11.0)
[2018-08-11 10:30] LABS: ALB/GLOB RATIO 1.2 (1.1-1.8); ALBUMIN 3.6 g/dL (3.0-4.8); ALT/SGPT 22 U/L (7-56); AST/SGOT 25 U/L (14-36); BLOOD UREA NITROGEN 19 mg/dL (7-21); CALCIUM 9.2 mg/dL (8.4-10.5); GFR NON-AFRICAN AMERICAN > 60; LIPASE 91 U/L (23-300)
[2018-08-11] MEDS ORDERED: Iohexol 350 MG/100 ML VIAL ONE (10:31)
[2018-08-11] MEDS ORDERED: Magnesium Sulfate 1 gm in D5W 1 GM/100 ML BAG IVPB ONE (10:32)
[2018-08-11 10:41] LABS: TROPONIN I < 0.01 ng/mL
--- NOTE | 2018-08-11 10:43 | CARD ---
APPROVED REPORT Date of service: 08/11/2018 EKG Measurement Heart [id number] <Conclusion> Normal sinus rhythm NSSTW changes Mildly prolonged QTc No change
--- NOTE | 2018-08-11 11:19 | CT ---
Date of service: 08/11/2018 PROCEDURE: CT Abdomen and Pelvis with and without intravenous contrast HISTORY: upper and lt. sided abdominal pain x 2 weeks COMPARISON: 03/20/2015 TECHNIQUE: Axial images of the abdomen were obtained in the pre contrast, portal venous and delayed phases of enhancement. Coronal and sagittal reformats were generated. Contrast dose: Radiation dose: Total exam DLP = 248.95 mGy-cm. This CT exam was performed using one or more of the following dose reduction techniques: Automated exposure control, adjustment of the mA and/or kV according to patient size, and/or use of iterative reconstruction technique. FINDINGS: LOWER THORAX: Unremarkable. LIVER: Unremarkable. No gross lesion or ductal dilatation. GALLBLADDER AND BILE DUCTS: Unremarkable. PANCREAS: Unremarkable. No gross lesion or ductal dilatation. SPLEEN: Unremarkable. ADRENALS: Unremarkable. No mass. KIDNEYS AND URETERS: Unremarkable. No hydronephrosis. No solid mass. VASCULATURE: Unremarkable. No aortic aneurysm. No aortic atherosclerotic calcification or mural plaque present. BOWEL: Unremarkable. No obstruction. No gross mural thickening. APPENDIX: Normal appendix. PERITONEUM: Unremarkable. No free fluid. No free air. LYMPH NODES: Unremarkable. No enlarged lymph nodes. BLADDER: Unremarkable. REPRODUCTIVE: Unremarkable. BONES: No acute fracture. OTHER FINDINGS: None. IMPRESSION: Unremarkable pre and post contrast enhanced CT of the abdomen and pelvis.
[2018-08-11] MEDS ORDERED: Morphine 4 mg/ml ISec IVP STA (11:37)
[2018-08-11 13:10] LABS: URINE BILIRUBIN NEGATIVE (NEGATIVE); URINE BLOOD NEGATIVE (NEGATIVE); URINE GLUCOSE (UA) NEGATIVE (NEGATIVE); URINE LEUKOCYTE ESTERASE NEGATIVE Leu/uL (NEGATIVE); URINE PROTEIN NEGATIVE mg/dL (<30 mg/dL); URINE UROBILINOGEN 0.2 E.U./dL (<1 E.U./dL)
[2018-08-11 13:14] LABS: URINE APPEARANCE CLEAR (CLEAR); URINE COLOR LIGHT YELLOW (YELLOW)
--- NOTE | 2018-08-11 15:30 | RAD ---
Date of service: 08/11/2018 HISTORY: Medical clearance COMPARISON: 11/27/2017 FINDINGS: LUNGS: No active pulmonary disease. PLEURA: No significant pleural effusion identified, no pneumothorax apparent. CARDIOVASCULAR: No atherosclerotic calcification present No radiographic findings to suggest acute or significant cardiovascular disease. OSSEOUS STRUCTURES: No significant abnormalities. VISUALIZED UPPER ABDOMEN: Normal. OTHER FINDINGS: None. IMPRESSION: No active disease. No significant interval change compared to the prior examination(s). Concordant results with the preliminary interpretation rendered by the emergency department physician procedure.
[2018-08-11] MEDS: Morphine 2 mg/ml ISec IVP PRN (18:31)
[2018-08-11] MEDS ORDERED: Pneumococcal 23-Valent Vaccine IM ONE (18:40)
[2018-08-11] MEDS ORDERED: Influenza Vaccine 60 mcg/0.5 mL SYR (4YR UP) IM ONE (18:40)
[2018-08-12] MEDS: Sodium Chloride 0.9% 1,000 ML IV SCH (05:41)
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
[2018-08-12] MEDS: Cholecalciferol 1,000 INTLU TAB PO SCH (09:31)
[2018-08-12] MEDS: Metoprolol Succinate 50 mg XL Tab PO SCH (09:40)
[2018-08-12] MEDS: Morphine 2 mg/ml ISec IVP PRN ×2 (11:23→19:54)
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
[2018-08-12] MEDS: DOCUSATE PO SCH (17:45)
[2018-08-12] MEDS: B12 PO SCH (17:45)
[2018-08-12] MEDS: [UNRECOGNIZED DRUG - OTHER] PO SCH (17:45)
[2018-08-12] MEDS: IRON CARB GL PO SCH (17:45)
[2018-08-12] MEDS: cefTRIAXone 1 gm 1 GM/100 ML BAG IVPB SCH (17:49)
[2018-08-12] MEDS: metroNIDAZOLE IV 500 mg/100 ml 500 MG/100 ML BAG IVPB SCH (21:24)
--- NOTE | 2018-08-12 23:45 | PN ---
DATE: 08/12/2018 SUBJECTIVE: The patient was seen and examined on the bedside on 08/12/2018. Looking comfortable. Still having abdominal pain. Sometime feeling nauseous. No headache or dizziness. No chest pain. No palpitation. No fever. No chills. No hematuria or hematochezia. Feeling periumbilical tenderness to light palpation. PHYSICAL EXAMINATION: VITAL SIGNS: Temperature 98.5, pulse 98, respiratory rate 20, blood pressure 133/73. HEENT: Head normocephalic, atraumatic. Eyes PERRLA. Extraocular muscles intact. Conjunctivae clear. Nose patent. NECK: Supple. No carotid bruit. No JVD or thyromegaly. CHEST: Bilaterally symmetrical. HEART: S1 and S2 positive. LUNGS: Clear to auscultation. ABDOMEN: Soft. Bowel sounds positive. No organomegaly, but periumbilical area is tender to deep palpation. EXTREMITIES: No edema. No cyanosis. NEUROLOGICAL: The patient is awake and alert. Follows simple commands. LABORATORY DATA: White blood cells 10.3, hemoglobin 9.3, hematocrit 29.3, platelets 363. Sodium 138, potassium 4.4, BUN 19, creatinine 0.9, glucose 156. ASSESSMENT AND PLAN: Ms. Aimee Dozier, 73-year-old lady with anemia, hyperglycemia with history of hypertension, diabetes mellitus, hernia repair, right knee replacement, pancreatic head cyst with most of her treatment was done in [place]. Came with abdominal pain, especially the periumbilical area going towards the left side of the whole abdomen. Gradually worsening and also intermittent diarrhea and nauseousness. CAT scan of the abdomen done. According to Dr. Carey, there is seen thickening of 2 cm in the small bowel representing left-sided abdomen enteritis or colitis. Started the patient on clear liquid diet. Maybe the patient need MR enterography or possibly followed by capsule imaging. Started Flagyl and Rocephin. The patient has EGD performed in [facility] at 09/2017 showed mild erythematous mucosa. Pathology performed was negative. Colonoscopy performed in [facility] in 09/2017 showed small nonbleeding internal hemorrhoids. History of anemia, probably iron deficiency. Maybe suggestive of enteritis, but requires further evaluation. Appreciated Dr. Neal' and Dr. Carey's input. Gastrointestinal and deep venous thrombosis prophylaxis. Repeat labs. We will follow up. Domenica Dominguez MD
[2018-08-13] MEDS: Morphine 2 mg/ml ISec IVP PRN ×2 (03:12→22:54)
--- NOTE | 2018-08-13 05:13 | HP ---
DATE OF EXAM: 08/12/2018 The patient was seen and examined at the bedside on 08/11/2018. CHIEF COMPLAINT: Abdominal pain and nauseousness. HISTORY OF PRESENT ILLNESS: Mrs. Aimee Dozier is 73 years old, my private patient, has multiple medical problems of hypertension, diabetes mellitus, hernia, GERD, dyspepsia, right knee surgery, colon resection about 15 years ago, abdominal hernia surgery about one year ago, came actually in my office with abdominal pain, and I sent her for CAT scan of the abdomen, She came to the emergency room complaining of upper and left-sided abdominal pain x2 weeks. The patient stated that she has upper and left-sided abdominal pain on and off for two weeks associated with nausea, but no vomiting. No chest pain, no diarrhea, no fever, no chills, no shortness of breath, no night sweats, no dizziness, and no change in the vision. She never completed CAT scan of the abdomen. Even I gave her a prescription because of increase of pain, she came over here. PAST MEDICAL HISTORY: Hypertension, diabetes mellitus, hiatal hernia, joint replacement, right knee, left shoulder replacement. FAMILY HISTORY: Father and mother, noncontributory. HABITS: No smoking, no drugs, no ethanol. ALLERGIES: WITH CODEINE, INDOMETHACIN, SCOPOLAMINE, CONTAC-D COLD. HOME MEDICATIONS: Aspirin, Celebrex, Cymbalta, metronidazole, and amlodipine. REVIEW OF SYSTEMS: The patient was seen and examined at bedside with the daughter, still nauseous, having abdominal pain. No fever, no chills, no headache, no dizziness, no pruritus, no arthritis, no back pain. PHYSICAL EXAMINATION: VITAL SIGNS: Temperature 98.4, pulse 67, respiratory rate 18, blood pressure 164/72. HEENT: Head: Normocephalic and atraumatic. Eyes: PERRLA. Extraocular muscles intact. Conjunctivae clear. Nose patent. Mucous membranes moist. NECK: Supple. No carotid bruits. No JVD or thyromegaly. CHEST: Bilaterally symmetrical. HEART: S1 and S2 positive. LUNGS: Clear to auscultation. ABDOMEN: Soft, nontender in the left upper and lower sides. EXTREMITIES: No edema, no cyanosis. NEUROLOGIC: The patient is awake and alert. Moving all 4 extremities, no focal deficits. LABORATORY DATA: White blood cells 10.3, hemoglobin 9.3, hematocrit 29.3, platelets 353. Sodium 138, potassium 4.4, BUN 19, creatinine 0.9, glucose 156, magnesium 1.5, and alkaline phosphatase 28. ASSESSMENT AND PLAN: Mrs. Aimee Dozier is a 73-year-old lady with anemia, hyperglycemia, hypomagnesemia, who came with abdominal pain. CAT scan of the abdomen and pelvis done, it showed unremarkable pre and post contrast and had CT of the abdomen and pelvis. CAT scan is done and reviewed by me. The patient had multiple medical problems in the past, to be kept overnight. The patient has history of hypertension, diabetes mellitus, hernia repair, gastroesophageal reflux disease, right knee surgery, colon resection about 15 years ago, abdominal hernia surgery done about one year ago. We admitted. Called Gastroenterology consult. We will call Surgical consult also, repeat labs. We will follow up. Domenica Dominguez MD MTDD
[2018-08-13] MEDS: metroNIDAZOLE IV 500 mg/100 ml 500 MG/100 ML BAG IVPB SCH ×3 (05:50→21:58)
[2018-08-13] MEDS: Sodium Chloride 0.9% 1,000 ML IV SCH ×3 (05:52→21:58)
--- NOTE | 2018-08-13 07:54 | CP.PCM.PN ---
Subjective - Date & Time of Evaluation Date of Evaluation: 08/13/18 Time of Evaluation: 07:51 - Subjective Subjective: Yumi Altamirano, PGY-1, Surgery Progress Note for Dr. Neal Patient seen and evaluated at bedside. Patient had no acute overnight events. Patient reports improved abdominal pain, has tolerated liquid diet, and denies nausea, vomiting, fever, constipation, diarrhea, dysuria, hematuria. 12-point ROS is unremarkable except for what is mentioned above. Objective - Vital Signs/Intake and Output Vital Signs (last 24 hours): Temp Pulse Resp BP Pulse Ox 99.8 F H 99 H 19 133/68 98 08/12/18 17:43 08/12/18 17:43 08/12/18 17:43 08/12/18 17:43 08/12/18 17:43 - Medications Medications: Current Medications Amlodipine Besylate (Norvasc) 10 mg PO DAILY [facility] Last Admin: 08/12/18 09:39 Dose: 10 mg Aspirin (Ecotrin) 81 mg PO [facility] Last Admin: 08/12/18 21:23 Dose: 81 mg Cholecalciferol (Vitamin D) 2,000 intlu PO DAILY [facility] Last Admin: 08/12/18 09:31 Dose: 2,000 intlu Duloxetine HCl (Cymbalta) 30 mg PO [facility] Last Admin: 08/12/18 21:24 Dose: 30 mg Home Med (Home Med) 1 unit PO DAILY [facility] Last Admin: 08/12/18 09:34 Dose: 1 unit Home Med (Home Med) 1 unit PO DAILY [facility] Last Admin: 08/12/18 09:35 Dose: 1 unit Home Med (Home Med) 2 unit PO BIDWM [facility] Last Admin: 08/12/18 17:50 Dose: 2 unit Home Med (Home Med) 1 unit PO HS [facility] Last Admin: 08/12/18 21:25 Dose: 1 unit Home Med (Home Med) 1 unit PO HS [facility] Last Admin: 08/12/18 21:26 Dose: 1 unit Hydrochlorothiazide (Hydrodiuril) 25 mg PO DAILY [facility] Last Admin: 08/12/18 09:41 Dose: 25 mg Sodium Chloride (Sodium Chloride 0.9%) 1,000 mls @ 100 mls/hr IV .Q10H [facility] Last Admin: 08/13/18 05:52 Dose: 100 mls/hr Metronidazole (Flagyl) 500 mg in 100 mls @ 100 mls/hr IVPB Q8 [facility]; Protocol Last Admin: 08/13/18 05:50 Dose: 100 mls/hr Ceftriaxone Sodium (Rocephin 1 Gram Ivpb) 1 gm in 100 mls @ 100 mls/hr IVPB DAILY [facility]; Protocol Last Admin: 08/12/18 17:49 Dose: 100 mls/hr Losartan Potassium (Cozaar) 100 mg PO DAILY [facility] Last Admin: 08/12/18 09:31 Dose: 100 mg Metoprolol Succinate (Toprol Xl) 50 mg PO DAILY [facility] Last Admin: 08/12/18 09:40 Dose: 50 mg Montelukast Sodium (Singulair) 10 mg PO HS [facility] Last Admin: 08/12/18 21:23 Dose: 10 mg Morphine Sulfate (Morphine) 1 mg IVP Q6 PRN PRN Reason: Pain, severe (8-10) Last Admin: 08/13/18 03:12 Dose: 1 mg Iron Carb,Gl/Fa/B12/C/Docusate [Ferralet 90 Tablet] 1 tab PO DAILY [facility] Last Admin: 08/12/18 17:45 Dose: Not Given - Labs Labs: 08/11/18 09:45 08/11/18 09:45 - Constitutional Appears: Well, Non-toxic, No Acute Distress - Head Exam Head Exam: ATRAUMATIC, NORMAL INSPECTION, NORMOCEPHALIC - Eye Exam Eye Exam: EOMI Pupil Exam: PERRL - ENT Exam ENT Exam: Mucous Membranes Moist - Respiratory Exam Respiratory Exam: Clear to Ausculation Bilateral, NORMAL BREATHING PATTERN - Cardiovascular Exam Cardiovascular Exam: REGULAR RHYTHM - GI/Abdominal Exam GI & Abdominal Exam: Soft, Normal Bowel Sounds. absent: Tenderness - Extremities Exam Extremities Exam: Full ROM - Neurological Exam Neurological Exam: Alert, Awake, CN II-XII Intact, Oriented x3 - Psychiatric Exam Psychiatric exam: Normal Affect, Normal Mood - Skin Skin Exam: Dry, Intact, Normal Color Assessment and Plan - Assessment and Plan (Free Text) Assessment: 73 year old female with past medical history of gastritis, internal hemorrhoids, pancreatic cyst, HTN, DM type 2, and dyspepsia presents with complaints of cramping left sided abdominal pain likely 2/2 to chronic mesenteric ischemia vs. diverticulitis vs. gastroenteritis. Plan: -Patient has improved abdominal pain. -Follow up for recommendations with GI. -Progress diet as tolerated from liquid to solid food. -DVT prophylaxis, GI prophylaxis -Replete electrolytes as needed. -If patient needs further surgical management, please contact surgical service. Will discuss case with Dr. Neal.
--- NOTE | 2018-08-13 07:59 | CP.PCM.PN ---
<Gilmer Branham R - Last Filed: 08/13/18 11:09> Subjective - Date & Time of Evaluation Date of Evaluation: 08/13/18 Time of Evaluation: 07:58 - Subjective Subjective: PGY-2 GI progress note for Dr Carey. No acute events noted overnight. Patient still complained of left sided abdominal pain. She denied fevers, chills. She is now on clear liquid diet. Had a bowel movement yesterday. Objective - Vital Signs/Intake and Output Vital Signs (last 24 hours): Temp Pulse Resp BP Pulse Ox 99.8 F H 99 H 19 133/68 98 08/12/18 17:43 08/12/18 17:43 08/12/18 17:43 08/12/18 17:43 08/12/18 17:43 - Medications Medications: Current Medications Amlodipine Besylate (Norvasc) 10 mg PO DAILY [facility] Last Admin: 08/12/18 09:39 Dose: 10 mg Aspirin (Ecotrin) 81 mg PO [facility] Last Admin: 08/12/18 21:23 Dose: 81 mg Cholecalciferol (Vitamin D) 2,000 intlu PO DAILY [facility] Last Admin: 08/12/18 09:31 Dose: 2,000 intlu Duloxetine HCl (Cymbalta) 30 mg PO [facility] Last Admin: 08/12/18 21:24 Dose: 30 mg Home Med (Home Med) 1 unit PO DAILY [facility] Last Admin: 08/12/18 09:34 Dose: 1 unit Home Med (Home Med) 1 unit PO DAILY [facility] Last Admin: 08/12/18 09:35 Dose: 1 unit Home Med (Home Med) 2 unit PO BIDWM [facility] Last Admin: 08/12/18 17:50 Dose: 2 unit Home Med (Home Med) 1 unit PO HS [facility] Last Admin: 08/12/18 21:25 Dose: 1 unit Home Med (Home Med) 1 unit PO HS [facility] Last Admin: 08/12/18 21:26 Dose: 1 unit Hydrochlorothiazide (Hydrodiuril) 25 mg PO DAILY [facility] Last Admin: 08/12/18 09:41 Dose: 25 mg Sodium Chloride (Sodium Chloride 0.9%) 1,000 mls @ 100 mls/hr IV .Q10H [facility] Last Admin: 08/13/18 05:52 Dose: 100 mls/hr Metronidazole (Flagyl) 500 mg in 100 mls @ 100 mls/hr IVPB Q8 [facility]; Protocol Last Admin: 08/13/18 05:50 Dose: 100 mls/hr Ceftriaxone Sodium (Rocephin 1 Gram Ivpb) 1 gm in 100 mls @ 100 mls/hr IVPB DAILY [facility]; Protocol Last Admin: 08/12/18 17:49 Dose: 100 mls/hr Losartan Potassium (Cozaar) 100 mg PO DAILY [facility] Last Admin: 08/12/18 09:31 Dose: 100 mg Metoprolol Succinate (Toprol Xl) 50 mg PO DAILY [facility] Last Admin: 08/12/18 09:40 Dose: 50 mg Montelukast Sodium (Singulair) 10 mg PO HS [facility] Last Admin: 08/12/18 21:23 Dose: 10 mg Morphine Sulfate (Morphine) 1 mg IVP Q6 PRN PRN Reason: Pain, severe (8-10) Last Admin: 08/13/18 03:12 Dose: 1 mg Iron Carb,Gl/Fa/B12/C/Docusate [Ferralet 90 Tablet] 1 tab PO DAILY [facility] Last Admin: 08/12/18 17:45 Dose: Not Given - Labs Labs: 08/11/18 09:45 08/11/18 09:45 - Additional Findings Additional findings: - Constitutional Appears: Well, Non-toxic, No Acute Distress - Head Exam Head Exam: ATRAUMATIC, NORMAL INSPECTION - Eye Exam Eye Exam: EOMI, Normal appearance, PERRL. absent: Scleral icterus - ENT Exam ENT Exam: Mucous Membranes Moist - Neck Exam Neck exam: Positive for: Full Rom, Normal Inspection - Respiratory Exam Respiratory Exam: Clear to Auscultation Bilateral, NORMAL BREATHING PATTERN. absent: Rales, Rhonchi, Wheezes - Cardiovascular Exam Cardiovascular Exam: REGULAR RHYTHM, +S1, +S2. absent: Tachycardia, JVD, Systolic Murmur - GI/Abdominal Exam GI & Abdominal Exam: Guarding, Normal Bowel Sounds, Soft, Tenderness. absent: Distended, Firm, Hernia, Rebound Additional comments: no gaurding however with left sided tenderness to light palpation; no hernias; small scars from previous hernia surgery - Extremities Exam Extremities exam: Positive for: normal inspection Assessment and Plan - Assessment and Plan (Free Text) Plan: Mrs Dozier is a 73 year old female with a PMHx of HTN, DM, hernia repair, right knee replacement, pancreatic head cyst who presented to our ED for 10 days of periumbilical abdominal pain that's been gradually worsening and also intermittent diarrhea: Abdominal Pain -possibly secondary to enteritis as CT showed significant wall thickening (2cm) in the small bowel present on the left side of abdomen as read by Dr Carey (official CT read was unremarkable) -CT abd/pelvis w/ and w/o iv contrast: * Unremarkable pre and post contrast enhanced CT of the abdomen and pelvis. * However as read by Dr Carey and Dr Aditya Neal - there is significant wall thickening in the small bowel present on the left side of abdomen that could possibly indicate enteritis -start on clear liquid diet 08/12 - will possibly advance diet tmr 08/14 -eventually she will need a MR enterography and possibly followed by capsule imaging -start flagyl 500mg ivp q8h 08/12 and start rocephin 1g ivpb q24h 08/12 -lovenox 40mg sc qd for dvt prophylaxis Previous Procedures: -EGD performed at [facility] in 09/2017 showed mild erythematous mucosa - path performed was negative (full report in paper chart) -colonoscopy performed at [facility] in 09/2017 showed small non-bleeding internal hemorrhoids otherwise normal colonoscopy (full report in paper chart) Case discussed with Dr Carey. <Philip Carey V - Last Filed: 08/14/18 00:00> Objective - Vital Signs/Intake and Output Vital Signs (last 24 hours): Temp Pulse Resp BP Pulse Ox 98.0 F 79 20 130/71 99 08/13/18 17:37 08/13/18 17:37 08/13/18 17:37 08/13/18 17:37 08/13/18 17:37 Intake and Output: 08/13/18 08/14/18 18:59 06:59 Intake Total 1620 Balance 1620 - Medications Medications: Current Medications Acetaminophen (Tylenol 325mg Tab) 650 mg PO Q6H PRN PRN Reason: Headache Last Admin: 08/13/18 16:32 Dose: 650 mg Amlodipine Besylate (Norvasc) 10 mg PO DAILY [facility] Last Admin: 08/13/18 10:35 Dose: 10 mg Aspirin (Ecotrin) 81 mg PO HS [facility] Last Admin: 08/13/18 21:57 Dose: 81 mg Cholecalciferol (Vitamin D) 2,000 intlu PO DAILY [facility] Last Admin: 08/13/18 11:47 Dose: 2,000 intlu Duloxetine HCl (Cymbalta) 30 mg PO HS [facility] Last Admin: 08/13/18 21:57 Dose: 30 mg Enoxaparin Sodium (Lovenox) 40 mg SC DAILY [facility]; Protocol Last Admin: 08/13/18 10:33 Dose: 40 mg Home Med (Home Med) 1 unit PO DAILY [facility] Last Admin: 08/13/18 11:21 Dose: 1 unit Home Med (Home Med) 1 unit PO DAILY [facility] Last Admin: 08/13/18 10:33 Dose: 1 unit Home Med (Home Med) 2 unit PO BIDWM [facility] Last Admin: 08/13/18 17:47 Dose: 2 unit Home Med (Home Med) 1 unit PO HS [facility] Last Admin: 08/13/18 21:57 Dose: 1 unit Home Med (Home Med) 1 unit PO HS [facility] Last Admin: 08/13/18 21:57 Dose: 1 unit Hydrochlorothiazide (Hydrodiuril) 25 mg PO DAILY [facility] Last Admin: 08/13/18 10:35 Dose: 25 mg Sodium Chloride (Sodium Chloride 0.9%) 1,000 mls @ 100 mls/hr IV .Q10H [facility] Last Admin: 08/13/18 21:58 Dose: 100 mls/hr Metronidazole (Flagyl) 500 mg in 100 mls @ 100 mls/hr IVPB Q8 [facility]; Protocol Last Admin: 08/13/18 21:58 Dose: 100 mls/hr Ceftriaxone Sodium (Rocephin 1 Gram Ivpb) 1 gm in 100 mls @ 100 mls/hr IVPB DAILY [facility]; Protocol Last Admin: 08/13/18 11:22 Dose: 100 mls/hr Losartan Potassium (Cozaar) 100 mg PO DAILY [facility] Last Admin: 08/13/18 10:36 Dose: 100 mg Metoprolol Succinate (Toprol Xl) 50 mg PO DAILY [facility] Last Admin: 08/13/18 10:36 Dose: 50 mg Montelukast Sodium (Singulair) 10 mg PO HS [facility] Last Admin: 08/13/18 21:57 Dose: 10 mg Morphine Sulfate (Morphine) 1 mg IVP Q6 PRN PRN Reason: Pain, severe (8-10) Last Admin: 08/13/18 22:54 Dose: 1 mg Iron Carb,Gl/Fa/B12/C/Docusate [Ferralet 90 Tablet] 1 tab PO DAILY [facility] Last Admin: 08/13/18 11:25 Dose: Not Given - Labs Labs: 08/11/18 09:45 08/11/18 09:45 Attending/Attestation - Attestation I have personally seen and examined this patient.: Yes I have fully participated in the care of the patient.: Yes I have reviewed all pertinent clinical information, including history, physical exam and plan: Yes Notes (Text): This is an addendum to GI followup report dictated by the Corn Shucker. The patient was seen and evaluated earlier. Medical records, lab studies, imagings were reviewed. Last 24 hours events reviewed. Agreed with the above treatment plan as outlined in Corn Shucker 's notes with the addition of the following Patient was feeling better compared to previous day On examination she still has tenderness left upper quadrant area Continue the antibiotics Continue clear liquid diet We will start the patient on DVT prophylaxis 08/13/18 23:58
[2018-08-13] MEDS: Enoxaparin 40 mg Syringe SC SCH (10:33)
[2018-08-13] MEDS: Metoprolol Succinate 50 mg XL Tab PO SCH (10:36)
[2018-08-13] MEDS: cefTRIAXone 1 gm 1 GM/100 ML BAG IVPB SCH (11:22)
[2018-08-13] MEDS: DOCUSATE PO SCH (11:25)
[2018-08-13] MEDS: B12 PO SCH (11:25)
[2018-08-13] MEDS: [UNRECOGNIZED DRUG - OTHER] PO SCH (11:25)
[2018-08-13] MEDS: IRON CARB GL PO SCH (11:25)
[2018-08-13] MEDS: Cholecalciferol 1,000 INTLU TAB PO SCH (11:47)
--- NOTE | 2018-08-13 13:19 | CP.PCM.PCO ---
Physician Communication Note - Physician Communication Note Physician Communication Note: Dx Segmental Enteritis-Rx Ab/No surgery needed now
[2018-08-14] MEDS: metroNIDAZOLE IV 500 mg/100 ml 500 MG/100 ML BAG IVPB SCH ×3 (05:46→21:40)
[2018-08-14 07:12] LABS: BASO # 0.02 K/mm3 (0.0-2.0); BASO % 0.4 % (0.0-3.0); EOS # 0.1 (0.0-0.7); EOS % 1.1 % (1.5-5.0); GRAN # 3.87 (1.4-6.5); GRAN % 72.4 % (50.0-68.0); LYMPH # 1.1 (1.2-3.4); LYMPH % 19.7 % (22.0-35.0); MEAN CELL VOLUME 72.3 fl (80.0-105.0); MEAN CORPUSCULAR HEMOGLOBIN 23.3 pg (25.0-35.0); MEAN CORPUSCULAR HGB CONC 32.3 g/dl (31.0-37.0); MEAN PLATELET VOLUME 9.9 fl (7.0-11.0); MONO # 0.3 (0.1-0.6); MONO % 6.4 % (1.0-6.0); RBC 3.86 10^6/uL (3.5-6.1); RED CELL DISTRIBUTION WIDTH 16.8 % (11.5-14.5); WHITE BLOOD COUNT 5.3 10^3/uL (4.5-11.0)
[2018-08-14 07:39] LABS: ALT/SGPT 21 U/L (7-56); AST/SGOT 28 U/L (14-36); BLOOD UREA NITROGEN 8 mg/dL (7-21); CALCIUM 8.7 mg/dL (8.4-10.5); GFR NON-AFRICAN AMERICAN > 60
[2018-08-14 07:49] LABS: IRON 19 ug/dL (45-180)
[2018-08-14 07:58] LABS: % IRON SATURATION 5 % (20-55); TOTAL IRON BINDING CAPACITY 353 ug/dL (265-497)
--- NOTE | 2018-08-14 08:54 | PN ---
DATE: 08/13/2018 SUBJECTIVE: The patient was seen and examined on the bedside. No fever. No chills. No nausea, vomiting, or diarrhea. No hematuria or hematochezia. No swelling of the leg. Abdominal pain is better. Daughter is sitting on the bedside. The patient tolerated clear liquid very well. PHYSICAL EXAMINATION: VITAL SIGNS: Temperature 99.8, pulse 99, respiratory rate 19, blood pressure 133/68, pulse oximetry 98. HEENT: Head normocephalic, atraumatic. Eyes; PERRLA. Extraocular muscles intact. Conjunctivae clear. Nose patent. Mucous membrane moist. NECK: Supple. No carotid bruit. No JVD or thyromegaly. CHEST: Bilaterally symmetrical. HEART: S1 and S2 positive. LUNGS: Clear to auscultation. ABDOMEN: Soft. Tender still in the left side of the abdomen. EXTREMITIES: No edema. No cyanosis. NEUROLOGICAL: The patient is awake and alert. Follows simple commands. MEDICATIONS: Amlodipine, aspirin, vitamin D, Cymbalta. Home medications: Metronidazole, Rocephin, losartan, metoprolol, morphine, iron. LABORATORY DATA: White blood cells 10.3, hemoglobin 9.3, hematocrit 29.3, platelets 363. Sodium 148, potassium 4.4, BUN 19, creatinine 0.9, glucose 166. ASSESSMENT AND PLAN: Ms. Aimee Dozier, 70 years old lady with anemia and leukocytosis with past medical history of hypertension, diabetes mellitus, hernia repair, right knee replacement, pancreatic head cyst, came to our emergency room with 10 days of periumbilical pain that is then gradually worsening and with intermittent diarrhea. Actually, the patient was sent by me for CAT scan of the abdomen and pelvis, but she never went. Now, in the ER, CAT scan is done, shows left-sided enteritis with significant wall thickening in the small bowel present of the left side of the abdomen that could possibly indicate enteritis and the patient is responding very well on antibiotic, metronidazole. Started clear liquid diet. Eventually the patient need MR enteropathy and possibly followup capsule imaging. Lovenox for deep venous thrombosis prophylaxis. The patient had extensive workup , History of hypertension, hypercholesterolemia. Repeat labs. Daughter is sitting on the bedside. All questions answered. We will follow up. Domenica Dominguez MD [facility]
[2018-08-14] MEDS: cefTRIAXone 1 gm 1 GM/100 ML BAG IVPB SCH (10:12)
[2018-08-14] MEDS: Enoxaparin 40 mg Syringe SC SCH (10:15)
[2018-08-14] MEDS: Metoprolol Succinate 50 mg XL Tab PO SCH (10:16)
[2018-08-14] MEDS: Cholecalciferol 1,000 INTLU TAB PO SCH (10:16)
--- NOTE | 2018-08-14 10:33 | CP.PCM.PN ---
<Gilmer Branham - Last Filed: 08/14/18 18:00> Subjective - Date & Time of Evaluation Date of Evaluation: 08/14/18 Time of Evaluation: 10:31 - Subjective Subjective: PGY-2 GI progress note for Dr Carey No acute events overnight. Patient stated her right sided abd pain had improved. She is tolerating clear liquid diet - asked when it will be advanced. She had a normal bowel movement yesterday. Stated she is ambulating to the bathroom and window throughout the day. No emesis, fevers. Objective - Vital Signs/Intake and Output Vital Signs (last 24 hours): Temp Pulse Resp BP Pulse Ox 98.2 F 77 19 131/67 100 08/14/18 06:00 08/14/18 10:16 08/14/18 06:00 08/14/18 10:16 08/14/18 06:00 - Medications Medications: Current Medications Acetaminophen (Tylenol 325mg Tab) 650 mg PO Q6H PRN PRN Reason: Headache Last Admin: 08/13/18 16:32 Dose: 650 mg Amlodipine Besylate (Norvasc) 10 mg PO DAILY [facility] Last Admin: 08/14/18 10:14 Dose: 10 mg Aspirin (Ecotrin) 81 mg PO [facility] Last Admin: 08/13/18 21:57 Dose: 81 mg Cholecalciferol (Vitamin D) 2,000 intlu PO DAILY [facility] Last Admin: 08/14/18 10:16 Dose: 2,000 intlu Duloxetine HCl (Cymbalta) 30 mg PO [facility] Last Admin: 08/13/18 21:57 Dose: 30 mg Enoxaparin Sodium (Lovenox) 40 mg SC DAILY [facility]; Protocol Last Admin: 08/14/18 10:15 Dose: 40 mg Home Med (Home Med) 1 unit PO DAILY [facility] Last Admin: 08/14/18 10:13 Dose: 1 unit Home Med (Home Med) 1 unit PO DAILY [facility] Last Admin: 08/14/18 10:13 Dose: 1 unit Home Med (Home Med) 2 unit PO BIDWM [facility] Last Admin: 08/14/18 08:44 Dose: Not Given Home Med (Home Med) 1 unit PO [facility] Last Admin: 08/13/18 21:57 Dose: 1 unit Home Med (Home Med) 1 unit PO HS [facility] Last Admin: 08/13/18 21:57 Dose: 1 unit Hydrochlorothiazide (Hydrodiuril) 25 mg PO DAILY [facility] Last Admin: 08/14/18 10:16 Dose: 25 mg Sodium Chloride (Sodium Chloride 0.9%) 1,000 mls @ 100 mls/hr IV .Q10H [facility] Last Admin: 08/13/18 21:58 Dose: 100 mls/hr Metronidazole (Flagyl) 500 mg in 100 mls @ 100 mls/hr IVPB Q8 [facility]; Protocol Last Admin: 08/14/18 05:46 Dose: 100 mls/hr Ceftriaxone Sodium (Rocephin 1 Gram Ivpb) 1 gm in 100 mls @ 100 mls/hr IVPB DAILY [facility]; Protocol Last Admin: 08/14/18 10:12 Dose: 100 mls/hr Losartan Potassium (Cozaar) 100 mg PO DAILY [facility] Last Admin: 08/14/18 10:16 Dose: 100 mg Metoprolol Succinate (Toprol Xl) 50 mg PO DAILY [facility] Last Admin: 08/14/18 10:16 Dose: 50 mg Montelukast Sodium (Singulair) 10 mg PO HS [facility] Last Admin: 08/13/18 21:57 Dose: 10 mg Morphine Sulfate (Morphine) 1 mg IVP Q6 PRN PRN Reason: Pain, severe (8-10) Last Admin: 08/13/18 22:54 Dose: 1 mg Iron Carb,Gl/Fa/B12/C/Docusate [Ferralet 90 Tablet] 1 tab PO DAILY [facility] Last Admin: 08/13/18 11:25 Dose: Not Given - Labs Labs: 08/14/18 06:20 08/14/18 06:20 - Additional Findings Additional findings: - Constitutional Appears: Well, Non-toxic, No Acute Distress - Head Exam Head Exam: ATRAUMATIC, NORMAL INSPECTION - Eye Exam Eye Exam: EOMI, Normal appearance, PERRL. absent: Scleral icterus - ENT Exam ENT Exam: Mucous Membranes Moist - Neck Exam Neck exam: Positive for: Full Rom, Normal Inspection - Respiratory Exam Respiratory Exam: Clear to Auscultation Bilateral, NORMAL BREATHING PATTERN. absent: Rales, Rhonchi, Wheezes - Cardiovascular Exam Cardiovascular Exam: REGULAR RHYTHM, +S1, +S2. absent: Tachycardia, JVD, Systolic Murmur - GI/Abdominal Exam GI & Abdominal Exam: Guarding, Normal Bowel Sounds, Soft, Tenderness. absent: Distended, Firm, Hernia, Rebound Additional comments: no gaurding however with left sided tenderness to light palpation; no hernias; small scars from previous hernia surgery - Extremities Exam Extremities exam: Positive for: normal inspection Assessment and Plan - Assessment and Plan (Free Text) Plan: Mrs Dozier is a 73 year old female with a PMHx of HTN, DM, hernia repair, right knee replacement, pancreatic head cyst who presented to our ED for 10 days of periumbilical abdominal pain that's been gradually worsening and also intermittent diarrhea: Abdominal Pain -possibly secondary to enteritis as CT showed significant wall thickening (2cm) in the small bowel present on the left side of abdomen as read by Dr Carey (official CT read was unremarkable) -CT abd/pelvis w/ and w/o iv contrast: * Unremarkable pre and post contrast enhanced CT of the abdomen and pelvis. * However as read by Dr Carey and Dr Aditya Neal - there is significant wall thickening in the small bowel present on the left side of abdomen that could possibly indicate enteritis -advanced to full liquids today -eventually she will need a MR enterography and possibly followed by capsule imaging -start flagyl 500mg ivp q8h 08/12 and start rocephin 1g ivpb q24h 08/12 -lovenox 40mg sc qd for dvt prophylaxis Previous Procedures: -EGD performed at [facility] in 09/2017 showed mild erythematous mucosa - path performed was negative (full report in paper chart) -colonoscopy performed at [facility] in 09/2017 showed small non-bleeding internal hemorrhoids otherwise normal colonoscopy (full report in paper chart) Case discussed with Dr Carey. <Philip Carey V - Last Filed: 08/14/18 21:36> Objective - Vital Signs/Intake and Output Vital Signs (last 24 hours): Temp Pulse Resp BP Pulse Ox 98.5 F 79 20 135/75 99 08/14/18 17:30 08/14/18 17:30 08/14/18 17:30 08/14/18 17:30 08/14/18 17:30 - Medications Medications: Current Medications Acetaminophen (Tylenol 325mg Tab) 650 mg PO Q6H PRN PRN Reason: Headache Last Admin: 08/13/18 16:32 Dose: 650 mg Amlodipine Besylate (Norvasc) 10 mg PO DAILY [facility] Last Admin: 08/14/18 10:14 Dose: 10 mg Aspirin (Ecotrin) 81 mg PO HS [facility] Last Admin: 08/13/18 21:57 Dose: 81 mg Cholecalciferol (Vitamin D) 2,000 intlu PO DAILY [facility] Last Admin: 08/14/18 10:16 Dose: 2,000 intlu Duloxetine HCl (Cymbalta) 30 mg PO HS [facility] Last Admin: 08/13/18 21:57 Dose: 30 mg Enoxaparin Sodium (Lovenox) 40 mg SC DAILY [facility]; Protocol Last Admin: 08/14/18 10:15 Dose: 40 mg Home Med (Home Med) 1 unit PO DAILY [facility] Last Admin: 08/14/18 10:13 Dose: 1 unit Home Med (Home Med) 1 unit PO DAILY [facility] Last Admin: 08/14/18 10:13 Dose: 1 unit Home Med (Home Med) 2 unit PO BIDWM [facility] Last Admin: 08/14/18 17:37 Dose: Not Given Home Med (Home Med) 1 unit PO [facility] Last Admin: 08/13/18 21:57 Dose: 1 unit Home Med (Home Med) 1 unit PO [facility] Last Admin: 08/13/18 21:57 Dose: 1 unit Hydrochlorothiazide (Hydrodiuril) 25 mg PO DAILY [facility] Last Admin: 08/14/18 10:16 Dose: 25 mg Sodium Chloride (Sodium Chloride 0.9%) 1,000 mls @ 100 mls/hr IV .Q10H [facility] Last Admin: 08/13/18 21:58 Dose: 100 mls/hr Metronidazole (Flagyl) 500 mg in 100 mls @ 100 mls/hr IVPB Q8 [facility]; Protocol Last Admin: 08/14/18 13:18 Dose: 100 mls/hr Ceftriaxone Sodium (Rocephin 1 Gram Ivpb) 1 gm in 100 mls @ 100 mls/hr IVPB DAILY [facility]; Protocol Last Admin: 08/14/18 10:12 Dose: 100 mls/hr Losartan Potassium (Cozaar) 100 mg PO DAILY [facility] Last Admin: 08/14/18 10:16 Dose: 100 mg Metoprolol Succinate (Toprol Xl) 50 mg PO DAILY [facility] Last Admin: 08/14/18 10:16 Dose: 50 mg Montelukast Sodium (Singulair) 10 mg PO HS [facility] Last Admin: 08/13/18 21:57 Dose: 10 mg Morphine Sulfate (Morphine) 1 mg IVP Q6 PRN PRN Reason: Pain, severe (8-10) Last Admin: 08/13/18 22:54 Dose: 1 mg Iron Carb,Gl/Fa/B12/C/Docusate [Ferralet 90 Tablet] 1 tab PO DAILY [facility] Last Admin: 08/14/18 12:28 Dose: Not Given - Labs Labs: 08/14/18 06:20 08/14/18 06:20 Attending/Attestation - Attestation I have personally seen and examined this patient.: Yes I have fully participated in the care of the patient.: Yes I have reviewed all pertinent clinical information, including history, physical exam and plan: Yes Notes (Text): This is an addendum to GI followup report dictated by the [employer] Developer. The patient was seen and evaluated earlier. Medical records, lab studies, imagings were reviewed. Last 24 hours events reviewed. Agreed with the above treatment plan as outlined in [employer] 's notes with the addition of the following This patient feeling much better Tolerating full liquid diet On examination left upper quadrant tenderness has significantly improved Continue antibiotics Slowly advanced to low residue soft diet in the a.m. Discussed with the patient's daughter who was also at bedside at the request of the patient 08/14/18 21:35
[2018-08-14] MEDS: Potassium Chloride 20 mEq ER Tab PO SCH ×2 (11:51→15:11)
[2018-08-14 12:28] LABS: FERRITIN 51.1 ng/mL
[2018-08-14] MEDS: DOCUSATE PO SCH (12:28)
[2018-08-14] MEDS: B12 PO SCH (12:28)
[2018-08-14] MEDS: IRON CARB GL PO SCH (12:28)
[2018-08-14] MEDS: [UNRECOGNIZED DRUG - OTHER] PO SCH (12:28)
[2018-08-14 12:58] LABS: FOLATE 12.4 ng/mL
[2018-08-14 17:30] VITALS: RESP 20
--- NOTE | 2018-08-14 22:22 | PN ---
DATE: 08/14/2018 SUBJECTIVE: The patient was seen and examined on the bedside on 08/14/2018, looking comfortable. Abdominal pain is better. Advanced her diet, tolerated well. No fever. No chills. No headache. No dizziness. The patient had no bowel movement yesterday. She is ambulatory. No emesis. PHYSICAL EXAMINATION: VITAL SIGNS: Temperature 98.2, pulse 77, respiratory rate 19, blood pressure 130/67, pulse oximetry 100. HEENT: Head normocephalic, atraumatic. Eyes PERRLA. Extraocular muscles intact. Conjunctivae clear. Nose patent. Mucous membrane moist. NECK: Supple. No carotid bruit. No JVD or thyromegaly. CHEST: Bilaterally symmetrical. HEART: S1 and S2 positive. LUNGS: Clear to auscultation. ABDOMEN: Soft. Bowel sounds positive. No organomegaly. EXTREMITIES: No edema. No cyanosis. NEUROLOGICAL: The patient is awake and alert. Moving all 4 extremities. No focal deficits. MEDICATIONS: Tylenol, amlodipine, aspirin, vitamin D, Cymbalta, Lovenox, Rocephin, Cozaar, metoprolol, Singulair, morphine. LABORATORY DATA: White blood cells 5.5, hemoglobin 9, hematocrit 27.9, platelets 432. Sodium 139, potassium 3.1, BUN 8, creatinine 0.9, glucose 111. ASSESSMENT AND PLAN: Ms. Aimee Dozier, 73-year-old lady with anemia, hypokalemia, hyperglycemia with past medical history of hypertension, diabetes mellitus, hernia repair, right knee replacement, pancreatic head cyst. Came to the emergency room for 10 days' periumbilical abdominal pain. We did CAT scan, came to know that the patient has enteritis. Started on antibiotics, doing better. Seen by Dr. Carey and Dr. Neal. I appreciated Dr. Neal' report. No more surgery. Gastrointestinal, deep venous thrombosis prophylaxis. Repeat labs. Discussion done with the patient and the patient's daughter. We will follow up. Domenica Dominguez MD
[2018-08-15] MEDS: Morphine 2 mg/ml ISec IVP PRN (00:19)
[2018-08-15] MEDS: metroNIDAZOLE IV 500 mg/100 ml 500 MG/100 ML BAG IVPB SCH (05:27)
[2018-08-15] MEDS: DOCUSATE PO SCH (09:30)
[2018-08-15] MEDS: IRON CARB GL PO SCH (09:30)
[2018-08-15] MEDS: B12 PO SCH (09:30)
[2018-08-15] MEDS: [UNRECOGNIZED DRUG - OTHER] PO SCH (09:30)
[2018-08-15 09:36] VITALS: TEMP 98.1; O2SAT 97
[2018-08-15] MEDS: cefTRIAXone 1 gm 1 GM/100 ML BAG IVPB SCH (09:40)
[2018-08-15] MEDS: Enoxaparin 40 mg Syringe SC SCH (09:43)
[2018-08-15] MEDS: Metoprolol Succinate 50 mg XL Tab PO SCH (09:44)
[2018-08-15 09:47] VITALS: BP 146/82; PULSE 82
[2018-08-15] MEDS: Cholecalciferol 1,000 INTLU TAB PO SCH (10:11)
--- NOTE | 2018-08-15 11:10 | CP.PCM.PN ---
<Steve,Tiny - Last Filed: 08/15/18 11:06> Subjective - Date & Time of Evaluation Date of Evaluation: 08/15/18 Time of Evaluation: 09:00 - Subjective Subjective: GI Fellow PGY5 Progress Note Pt seen and evaluated at bedside, pt feels much better and eating a soft diet with no complaints of abdominal pain. +BM normal last night. ROS: A 12pt ROS was negative except as above. Objective - Vital Signs/Intake and Output Vital Signs (last 24 hours): Temp Pulse Resp BP Pulse Ox 98.1 F 82 20 146/82 97 08/15/18 06:00 08/15/18 09:44 08/15/18 06:00 08/15/18 09:44 08/15/18 06:00 Intake and Output: 08/15/18 08/15/18 06:59 18:59 Intake Total 560 Output Total 0 Balance 560 - Medications Medications: Current Medications Acetaminophen (Tylenol 325mg Tab) 650 mg PO Q6H PRN PRN Reason: Headache Last Admin: 08/13/18 16:32 Dose: 650 mg Amlodipine Besylate (Norvasc) 10 mg PO DAILY [facility] Last Admin: 08/15/18 09:42 Dose: 10 mg Aspirin (Ecotrin) 81 mg PO HS [facility] Last Admin: 08/14/18 21:41 Dose: 81 mg Cholecalciferol (Vitamin D) 2,000 intlu PO DAILY [facility] Last Admin: 08/15/18 10:11 Dose: 2,000 intlu Duloxetine HCl (Cymbalta) 30 mg PO [facility] Last Admin: 08/14/18 21:41 Dose: 30 mg Enoxaparin Sodium (Lovenox) 40 mg SC DAILY [facility]; Protocol Last Admin: 08/15/18 09:43 Dose: Not Given Home Med (Home Med) 1 unit PO DAILY [facility] Last Admin: 08/15/18 09:42 Dose: 1 unit Home Med (Home Med) 1 unit PO DAILY [facility] Last Admin: 08/14/18 10:13 Dose: 1 unit Home Med (Home Med) 2 unit PO BIDWM [facility] Last Admin: 08/15/18 10:10 Dose: 1 unit Home Med (Home Med) 1 unit PO HS [facility] Last Admin: 08/14/18 21:43 Dose: 1 unit Home Med (Home Med) 1 unit PO HS [facility] Last Admin: 08/14/18 21:43 Dose: 1 unit Hydrochlorothiazide (Hydrodiuril) 25 mg PO DAILY [facility] Last Admin: 08/15/18 09:43 Dose: 25 mg Sodium Chloride (Sodium Chloride 0.9%) 1,000 mls @ 100 mls/hr IV .Q10H [facility] Last Admin: 08/13/18 21:58 Dose: 100 mls/hr Metronidazole (Flagyl) 500 mg in 100 mls @ 100 mls/hr IVPB Q8 [facility]; Protocol Last Admin: 08/15/18 05:27 Dose: 100 mls/hr Ceftriaxone Sodium (Rocephin 1 Gram Ivpb) 1 gm in 100 mls @ 100 mls/hr IVPB DAILY [facility]; Protocol Last Admin: 08/15/18 09:40 Dose: 100 mls/hr Losartan Potassium (Cozaar) 100 mg PO DAILY [facility] Last Admin: 08/14/18 10:16 Dose: 100 mg Metoprolol Succinate (Toprol Xl) 50 mg PO DAILY [facility] Last Admin: 08/15/18 09:44 Dose: 50 mg Montelukast Sodium (Singulair) 10 mg PO HS [facility] Last Admin: 08/14/18 21:41 Dose: 10 mg Iron Carb,Gl/Fa/B12/C/Docusate [Ferralet 90 Tablet] 1 tab PO DAILY [facility] Last Admin: 08/15/18 09:30 Dose: Not Given - Labs Labs: 08/14/18 06:20 08/14/18 06:20 - Constitutional Appears: Non-toxic, No Acute Distress - Head Exam Head Exam: ATRAUMATIC, NORMAL INSPECTION, NORMOCEPHALIC - Eye Exam Eye Exam: EOMI, Normal appearance Pupil Exam: PERRL - ENT Exam ENT Exam: Mucous Membranes Moist - Respiratory Exam Respiratory Exam: Clear to Ausculation Bilateral, NORMAL BREATHING PATTERN - Cardiovascular Exam Cardiovascular Exam: RRR, +S1, +S2 - GI/Abdominal Exam GI & Abdominal Exam: Soft, Normal Bowel Sounds. absent: Distended, Firm, Tenderness - Extremities Exam Extremities Exam: Full ROM, Normal Inspection - Neurological Exam Neurological Exam: Alert, Awake, Oriented x3 - Psychiatric Exam Psychiatric exam: Normal Affect, Normal Mood - Skin Skin Exam: Dry, Intact, Normal Color, Warm Assessment and Plan - Assessment and Plan (Free Text) Assessment: Mrs Dozier is a 73 year old female with a PMHx of HTN, DM, hernia repair, right knee replacement, pancreatic head cyst who presented to our ED for 10 days of periumbilical abdominal pain that's been gradually worsening and also intermittent diarrhea. 1. Abdominal pain 2. Enteritis 3. Diarrhea Plan: -Continue supportive care with pain control and anti-emetics -Abdominal pain secondary to enteritis as CT showed significant wall thickening (2cm) in the small bowel present on the left side of abdomen -Pt tolerating sift diet this am with no pain, +BM -Will need a MR enterography and possibly followed by capsule imaging -Okay to discharge pt home on abx for total 7-10days -Followup with GI doctor as an outpt in 2 weeks <Philip Carey V - Last Filed: 08/16/18 21:56> Objective - Vital Signs/Intake and Output Vital Signs (last 24 hours): Temp Pulse Resp BP Pulse Ox 98.1 F 82 20 146/82 97 08/15/18 06:00 08/15/18 09:44 08/15/18 06:00 08/15/18 09:44 08/15/18 06:00 - Labs Labs: 08/14/18 06:20 08/14/18 06:20 Attending/Attestation - Attestation I have personally seen and examined this patient.: Yes I have fully participated in the care of the patient.: Yes I have reviewed all pertinent clinical information, including history, physical exam and plan: Yes Notes (Text): This is an addendum to GI progress report dictated by the GI Fellow.The patient was seen and examined earlier. Medical records, lab studies, imagings were reviewed. Last 24 hours events reviewed. Agreed with the above treatment plan as outlined in GI Fellow 's notes with the addition of the following Patient was feeling better On examination the left-sided abdominal discomfort has significantly improved Physical examination abdomen soft minimal tenderness on deep palpation in the left uppt area Diet has been advanced Patient's student life coordinator is in the [facility]. Patient was advised to get a CD copyall of her imaging studies from [facility] review with her student life coordinator Recommended to complete the antbiotic course Further evaluation will be based on the clinical course. Patient may benefit from MRE 08/16/18 01:49 08/16/18 21:52
--- NOTE | 2018-08-15 12:37 | CP.PCM.PCO ---
Physician Communication Note - Physician Communication Note Physician Communication Note: C Dif/Enteric c/s NEG:Rx Ab for poss enteritis
== END 2018-08-15 13:26 | disposition home or self-care (01) | DRG 392 ==
LOC: ED 08:50 → ERH 13:43 → 3RSO 15:32 → OBSVTOIN 08-12 23:17
PROVIDERS: ADMIT Internal Medicine; ATTEND Internal Medicine
DX: K52.9 Noninfective gastroenteritis and colitis, unspecified (principal); I10 Essential (primary) hypertension; D50.9 Iron deficiency anemia, unspecified; E11.65 Type 2 diabetes mellitus with hyperglycemia; K21.9 Gastro-esophageal reflux disease without esophagitis; E83.42 Hypomagnesemia; E87.6 Hypokalemia; K64.8 Other hemorrhoids; E78.00 Pure hypercholesterolemia, unspecified; Z79.84 Long term (current) use of oral hypoglycemic drugs; Z88.5 Allergy status to narcotic agent; Z79.82 Long term (current) use of aspirin